=== PATIENT | female | born 1940 | race Caucasian/White ===

== ENCOUNTER → 2017-05-31 | Outpatient (CLI) | payer MEDICARE, BC ==
--- NOTE | 2017-06-04 08:40 | MM ---
Reason for exam: screening (asymptomatic). Last mammogram was performed 1 year and 1 month ago. History: Patient is postmenopausal. Family history of breast cancer in sister at age 48. Benign US left CoreBiopsy of both breasts, May 12, 2007. Took estrogen for 15 years beginning at age 51. Physical Findings: A clinical breast exam by your physician is recommended on an annual basis and results should be correlated with mammographic findings. MG 3D Screening Mammo W/Cad Bilateral CC and MLO view(s) were taken. Prior study comparison: April 20, 2016, bilateral MG screening mammo w CAD. April 16, 2014, bilateral MG screening mammo w CAD. April 14, 2012, bilateral digital screening mammo w/CAD. There are scattered fibroglandular densities. Previous mammotome biopsy in the left breast. No significant changes when compared with prior studies. ASSESSMENT: Negative, BI-RAD 1 RECOMMENDATION: Routine screening mammogram of both breasts in 1 year.
== END | disposition home or self-care (01) ==
LOC: RADMAMWWP 07:50
PROVIDERS: ATTEND Family Medicine
DX: Z12.31 Encounter for screening mammogram for malignant neoplasm of breast (principal)
CPT/HCPCS: 77063; G0202

== ENCOUNTER → 2018-05-30 | Outpatient (CLI) | payer MEDICARE, BC ==
--- NOTE | 2018-06-03 09:46 | MM ---
Reason for exam: screening (asymptomatic). Last mammogram was performed 1 year ago. History: Patient is postmenopausal. Family history of breast cancer in sister at age 48. Benign US left CoreBiopsy of both breasts, May 12, 2007. Took estrogen for 15 years beginning at age 51. Physical Findings: A clinical breast exam by your physician is recommended on an annual basis and results should be correlated with mammographic findings. MG 3D Screening Mammo W/Cad Bilateral CC and MLO view(s) were taken. Prior study comparison: May 31, 2017, bilateral MG 3d screening mammo w/cad. April 30, 2016, left breast MG 3d work up w/cad LT. There are scattered fibroglandular densities. Previous mammotome biopsy in the left breast. There is chronic nodularity in the left breast. No significant changes when compared with prior studies. ASSESSMENT: Benign, BI-RAD 2 RECOMMENDATION: Routine screening mammogram of both breasts in 1 year.
== END | disposition home or self-care (01) ==
LOC: RADMAMWWP 09:50
PROVIDERS: ATTEND Family Medicine
DX: Z12.31 Encounter for screening mammogram for malignant neoplasm of breast (principal)
CPT/HCPCS: 77063; 77067

== ENCOUNTER → 2021-10-04 | Outpatient (CLI) | payer MEDICARE, BC ==
--- NOTE | 2021-10-04 19:43 | ECHOF ---
Referral Reason:R01.1 murmur MEASUREMENTS -------- HEIGHT: 170.2 cm WEIGHT: 62.1 kg BP: IVSd: 1.4 cm (0.6 - 1.1) LVIDd: 3.3 cm (3.9 - 5.3) LVPWd: 1.4 cm (0.6 - 1.1) IVSs: 2.0 cm LVIDs: 2.1 cm LVPWs: 1.8 cm LAESV Index (A-L): 13.05 ml/m Ao Diam: 3.4 cm (2.0 - 3.7) AV Cusp: 1.7 cm (1.5 - 2.6) LA Diam: 2.5 cm (2.7 - 3.8) MV EXCURSION: 8.330 mm (> 18.000) MV EF SLOPE: 37 mm/s (70 - 150) EPSS: 0.5 cm MV E Samir: 0.53 m/s MV DecT: 238 ms MV A Samir: 0.90 m/s MV E/A Ratio: 0.59 RAP: 5.00 mmHg RVSP: 11.59 mmHg FINDINGS -------- This was a technically good study. The left ventricular size is normal. There is moderate concentric left ventricular hypertrophy. O verall left ventricular systolic function is normal with, an EF between 55 - 60 %. The right ventricle is normal in size. The left atrial size is normal. Normal LA size by volume 22+/-6 ml/m2. The right atrial size is normal. The aortic valve is trileaflet and appears structurally normal. The mitral valve is normal. There is trace mitral regurgitation. The tricuspid valve appears structurally normal. Mild tricuspid regurgitation present. Right vent ricular systolic pressure is normal at < 35 mmHg. There is no pulmonic regurgitation present. The aortic root size is normal. Normal inferior vena cava with normal inspiratory collapse consistent with estimated right atrial pre ssure of 5 mmHg. There is no pericardial effusion. CONCLUSIONS -------- 1. The left ventricular size is normal. 2. There is moderate concentric left ventricular hypertrophy. 3. Overall left ventricular systolic function is normal with, an EF between 55 - 60 %. 4. There is trace mitral regurgitation. 5. Mild tricuspid regurgitation present. 6. There is no pericardial effusion. [employer]: Marisela Mcnally RDCS
== END | disposition home or self-care (01) ==
LOC: RADECHMAIN 13:59
PROVIDERS: ATTEND Family Medicine
DX: I08.1 Rheumatic disorders of both mitral and tricuspid valves (principal)
CPT/HCPCS: 93306

== ENCOUNTER 2021-12-07 16:45 | Emergency (ER) | payer MEDICARE, BC ==
[2021-12-07 16:59] VITALS: BP 143/76; PULSE 74; RESP 18; TEMP 98.2
--- NOTE | 2021-12-07 17:58 | XR ---
EXAMINATION TYPE: XR hand complete RT DATE OF EXAM: 12/07/2021 5:25 PM INDICATION: Patient age:Female; 80 years old; Reason for study: palm pain; COMPARISON: None TECHNIQUE: 3 views of the AP lateral and oblique views of the hand were obtained. FINDINGS: Scattered degenerative changes are seen throughout the joints of the hand. Normal alignment of the visualized joints. No acute osseous pathology is identified. No evidence of soft tissue swe lling. IMPRESSION: 1. No acute osseous pathology. 2. Scattered multifocal osteoporosis changes.
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
[2021-12-07] MEDS ORDERED: DIPH,PERTUS(ACELL)TETVAC-LF 0.5 ML VIAL IM ONE (18:52)
[2021-12-07] MEDS ORDERED: BACITRACIN OINT 1 EACH PACKET TOPICAL ONE (18:53)
[2021-12-07] MEDS ORDERED: ACETAMINOPHEN TAB 500 MG TAB PO STA (18:55)
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
== END 2021-12-07 19:16 | disposition home or self-care (01) ==
LOC: EC 16:45
DX: S00.83XA Contusion of other part of head, initial encounter (principal); S60.221A Contusion of right hand, initial encounter; E11.9 Type 2 diabetes mellitus without complications; Z23 Encounter for immunization; W01.0XXA Fall on same level from slipping, tripping and stumbling without subsequent striking against object, initial encounter; Y92.481 Parking lot as the place of occurrence of the external cause; Y93.01 Activity, walking, marching and hiking
CPT/HCPCS: 70450; 70486; 90471; 90715; 99284